=== PATIENT | female | born 1965 | race Caucasian/White ===

== ENCOUNTER 2023-12-02 11:00 | Emergency (ER) | payer BC, SELFPAY ==
[2023-12-02 11:07] VITALS: BP 131/89
[2023-12-02 13:24] VITALS: BP 115/68
[2023-12-02 13:25] LABS: % Basophils 1.1 % (0-2); % Eosinophils 0.1 % (0-6); % Immature Granulocytes 0.4 % (0-0.5); % Lymphocytes 19.2 % (20.5-51.1); % Neutrophils 73.2 % (42.2-75.2); Absolute Basophils 0.1 10^3/uL (0-0.2); Absolute Lymphocytes 1.4 10^3/uL (1.2-3.4); Absolute Monocytes 0.5 10^3/uL (0.1-0.6); Absolute Neutrophils 5.5 10^3/uL (1.4-6.5); Hematocrit 35.3 % (37.0-47.0); Hemoglobin 11.9 g/dL (12.0-16.0); Mean Corp Hgb Conc. 33.7 g/dL (33.0-37.0); Mean Corpuscular Hgb 31.2 pg (27.0-31.0); Mean Corpuscular Volume 92.7 fL (81.0-99.0); Mean Platelet Volume 9.1 fL (7.4-10.4); Nucleated Red Blood Cells % 0 %; Platelet Count 376 10^3/uL (130-400); Red Blood Cell Count 3.81 10^6/uL (4.20-5.40); Red Cell Dist. Width 14.6 % (11.5-14.5); White Blood Cell Count 7.5 10^3/uL (4.8-10.8)
[2023-12-02] MEDS: NSS 1000 IV (13:35)
[2023-12-02 14:00] VITALS: BP 117/70
[2023-12-02 14:19] LABS: Blood Urea Nitrogen 16 mg/dl (7-17); Calcium 9.9 mg/dl (8.4-10.2); Carbon Dioxide 26 mmol/L (22-30); Chloride 106 mmol/L (98-107); Glucose 102 mg/dl (70-99); Sodium 137 mmol/L (135-145); eGFR > 60.00
[2023-12-02 14:29] LABS: Potassium 4.3 mmol/L (3.5-5.1)
--- NOTE | 2023-12-02 14:40 | ED.GENMED ---
History of Present Illness
General
Chief Complaint: Fainting Sensation
Source: patient and family
Exam Limitations: none
Time Seen by Provider: 12/02/23 12:14
Travel History
Have you had any contact with someone who has COVID-19?: No
Do you have any symptoms of coronavirus? Fever > 100 degrees, chills, cough, shortness of breath, sore throat, loss of taste or smell, muscle aches, or headache?: No
History of Present Illness
History of Present Illness:
58-year-old female who presents after she began to feel lightheaded while driving. She states she was well in the morning at breakfast normally and felt okay. She then admits while driving she started to think to herself that she may not feel
quite normal a little lightheaded. As it progressed she felt like her palms were sweaty. She decided to recline back in her car. No chest pain. She called her family. Her family thought she seemed a little bit slow to respond. Patient states
she did not have any difficulty speaking. She slowly began to feel better. Currently feels much better. Recently, she gave blood and went out with friends after. She had a drink and began to feel similarly. She states her friend had a similar
experience that same day after giving blood so she suspected it was related to giving blood. The patient has an appointment for follow-up for that incident that occurred this past weekend, tomorrow. Otherwise healthy. Does not take any daily
medicines. She felt briefly like her heart rate was racing. but She is not sure if it was more result of her being nervous.
Past History
Past History
ED Past Medical History: None
Social History
Tobacco: Non-smoker
Alcohol: Occasional
Phy Exam
Physical Exam
Physical Exam:
CONSTITUTIONAL Patient alert and oriented to person, place and time. Well-appearing. Vital signs reviewed.
HEAD atraumatic, normocephalic.
EYES eyelids normal to inspection, Pupils equally round and reactive to light, Extraocular muscles intact, Conjunctiva normal, Sclera normal.
NECK normal range of motion, Trachea midline, no jugular venous distention.
RESPIRATORY CHEST No respiratory distress noted, Chest expansion equal, Bilateral breath sounds clear.
CARDIOVASCULAR regular rate and rhythm, Heart sounds normal.
ABDOMEN abdomen nontender, Bowel sounds normal. No distention.
BACK normal inspection, no obvious deformities
UPPER EXTREMITY range of motion normal, Motor strength normal, no cyanosis, no edema.
LOWER EXTREMITY range of motion normal, Motor strength normal, no cyanosis, no edema.
NEURO Speech normal, No focal motor deficits, Greg coma scale 15, Memory normal, Cranial Nerves intact to screening exam. Normal [id number].
SKIN skin warm, dry, and normal in color.
PSYCHIATRIC patient oriented to person place and time, Normal affect.
Course
Orders/Labs/Results
Orders:
Orders
12/02/23 11:11
Electrocardiogram (*1) Urgent
Reason for Study: Other
Other Reason for Exam: lightheaded
EKG- Treatment ONCE
12/02/23 13:01
0.9% Sodium Chloride 1000 ml [Nss] 1,000 ml IV BOLUS
12/02/23 13:02
Cardiac Monitoring- Treatment ONCE
12/02/23 13:18
Basic Metabolic Panel Urgent
Complete Blood Count/With Diff Urgent
12/02/23 14:06
Magnesium Urgent
Potassium Urgent
12/02/23 14:33
Add On- LAB Urgent
Comments:: potassium
Tests Added?: potassium
12/02/23 15:08
CT Head W/o Iv Contrast Urgent
Comment:
Reason For Exam: vision loss, resolved
Abnormal Lab Results
12/02/23
13:18
RBC 3.81 L 10^6/uL
(4.20-5.40)
Hgb 11.9 L g/dL
(12.0-16.0)
Hct 35.3 L %
(37.0-47.0)
MCH 31.2 H pg
(27.0-31.0)
RDW 14.6 H %
(11.5-14.5)
Lymphocytes % 19.2 L %
(20.5-51.1)
Glucose 102 H mg/dl
(70-99)
12/02/23 13:18
12/02/23 14:06
Vital Signs
Initial and Last Documented VS:
Initial Vital Signs
Temp Pulse Resp BP Pulse Ox
97.8 F 102 16 131/89 98
12/02/23 11:07 12/02/23 11:07 12/02/23 11:07 12/02/23 11:07 12/02/23 11:07
Last Documented Vital Signs
Temp Pulse Resp BP Pulse Ox
97.8 F 82 14 117/70 100
12/02/23 11:07 12/02/23 14:45 12/02/23 14:45 12/02/23 14:00 12/02/23 14:45
MDM/Problems Addressed
Differential Diagnosis Includes:
Near syncope, arrhythmia, TIA
MDM/Problems Addressed:
Near syncope vs TIA
*Pulse Oximetry
Patient hypoxic: no
*EKG
Interpreted by ED Provider?: Yes
Interpretation: normal
Rate: normal
Rhythm: sinus
QRS Pattern: normal QRS
Ischemia: no ischemia
*Fire Protection Engineer Interpretation
Rate: normal
Interpretation: normal
Rhythm: sinus
*Critical Care Note
Total Time (30-74mins, 75-104mins- exclusive of procedures): Not Applicable
Data Reviewed
Source: patient
Further Testing Considered But Not Given:
Considered troponin but no chest pain no clinical signs for ACS
Patient Management
Escalation/DeEscalation of care consider admission/obs:
Patient appears well. Suspect near syncopal event that was brief in nature and question vagal event as she did have a little bit left-sided pain at that time. Patient now appears well and has remained in normal sinus rhythm. Okay for discharge
ED Attending Note
-
Portions of this chart may have been created with voice recognition software.� Occasional wrong word or��sound alike� substitutions may have occurred due to the inherent limitations of voice recognition software.
Discharge Plan
Departure
Patient with high blood pressure during this ER visit?: No
Discharge Problem:
Near syncope
Instructions: Near Fainting (DC)
Referrals:
Kaur Degroot, DO [Family Provider] -
Activity Restrictions/Additional Instructions:
Please drink plenty of fluids and see your doctor follow-up as planned. Return visit for chest pain, shortness of breath, palpitations, weakness medication or any other concerns.
Interventions
Interventions:
*General Assessment Last Done: 12/02/23 13:31
*ED COVID-19 Vaccine History Last Done: 12/02/23 11:07
ED- Neurological Assessment Last Done: 12/02/23 13:31
[2023-12-02 15:00] VITALS: BP 125/74
--- NOTE | 2023-12-02 15:45 | CON.NEURO ---
Neuro Assessment/Plan
Assessment
IMPRESSIONS/RECOMMENDATIONS:
Abrupt pre-syncope with subsequent headache
Most likely vaso-vagal in nature
Plan
check blood work for potential metabolic causes
Check orthostatic blood pressures
Will continue to follow as needed. Thank you.
Consultation
Order
Date of Consultation: 12/02/23
Requesting Provider: ED Physician
Reason for Consult: Pre-syncope
Subjective/Objective
Subjective Data
Date of Service: December 02, 2023
Right-Handed
1 week ago had complete syncope immediately after blood donation.
Today: At 09:00 [address] patient noted black spot in vision, causing difficulty with vision lasting for 10 minutes.
5 minutes later noted had a sense of ennui.
Patient then had a sense of mild confusion and had difficulty with identification of the local area which subsequently slowly resolved entirely. No involvement of loss of control of bowel or bladder. No tongue biting at the time. No other
associated symptoms and no known modifying factors.
Objective Data
Vital Signs
Temp Pulse Resp BP Pulse Ox
36.6 C 84 15 125/74 99
12/02/23 11:07 12/02/23 15:00 12/02/23 15:00 12/02/23 15:00 12/02/23 15:00
Lab Results
12/02/23 13:18
12/02/23 14:06
Sodium 137 mmol/L (135-145) 12/02/23 13:18
Potassium 4.3 mmol/L (3.5-5.1) 12/02/23 14:06
BUN 16 mg/dl (7-17) 12/02/23 13:18
Glucose 102 mg/dl (70-99) H 12/02/23 13:18
Calcium 9.9 mg/dl (8.4-10.2) 12/02/23 13:18
Patient Allergies
NSAIDS (Non-Steroidal Anti-Inflamma Allergy (Verified 12/02/23 11:11)
Rash
Review of Systems
-
History Source: Patient
All other systems: Reviewed and negative
Constitutional: Other (hand sweatiness)
EENT: Decreased Vision; Negative Swallowing Difficulty
Respiratory: Negative Trouble Breathing
Cardiac: Negative Chest Pain
Abdomen/GI: Negative Incontinence of Stool
Genitourinary: Negative Incontinence
Musculoskeletal: Negative Back Pain or Neck Pain
Neuro: Headache (today at 09:30 mild on left); Negative Dizzy
Physical Exam
-
General: No Apparent Distress and Appears Stated Age
Eyes: OU Absent Papilledema, Round OU, [place] Conjunctivae and No Ptosis
HEENT: Anicteric and Moist Mucous Membranes
Neck: Full Range of Motion
Respiratory: No Dyspnea
Cardiac: No JVD
GI: Non-distended
Skin: Unremarkable
Extremities: No Clubbing, No Cyanosis and No Edema
Psych: Intact Judgement/Insight
Extended Neurological Exam
Mood & Affect: Mood Unremarkable and Affect Unremarkable
Attention Span & Concentration: Awake, Alert, Interactive and No Difficulty with 2 Step Request
Memory: Unremarkable
Tremor: Hand Tremor Absent and Head Tremor Absent
Speech: Quality Unremarkable and Quantity Unremarkable
Cranial Nerve II: Left Eye: Pupillary Reactivity Unremarkable, Pupillary Size Unremarkable and Visual Bañuelos Intact
Cranial Nerve II: Right Eye: Pupillary Reactivity Unremarkable, Pupillary Size Unremarkable and Visual Bañuelos Intact
Cranial Nerves III, IV, : Extraocular Movement: Extraocular Movement Full in all Directions
Cranial Nerve VII: Facial Symmetry: Normal Facial Symmetry
Cranial Nerve VIII: Hearing: Unremarkable Hearing to Normal Conversational Volume
Cranial Nerves IX, X: Palate Movement: Palate Elevation Symmetric
Cranial Nerve XI: Shoulder Shrug: Unremarkable
Cranial Nerve XII: Tongue Protusion: Midline
Muscle Strength, Overall: Full Throughout
Muscle Bulk & Tone: Bulk Unremarkable and Tone Unremarkable
Pronator Drift: No Drift in Upper Extremities and No Drift in Lower Extremities
Deep Tendon Reflexes: Unremarkable Throughout
Touch Sensation: Unremarkable
Coordination: [id number]-[id number] Testing Unremarkable
Babinski Sign: Absent Bilaterally
Data Reviewed
-
CT Head: Pending
Labs: Ordered and Report Reviewed
Reviewed with: Physician and Patient
Old Records: Summarized
Past History
Past History
ED Past Medical History: Psychiatric (RAHUL)
ED Past Surgical History: Other (Bilateral carpal tunnel syndrome)
Social History
Tobacco: Non-smoker
Alcohol: Occasional
[2023-12-02 16:20] LABS: Erythrocyte Sed Rate 2 mm/hour (0-20)
[2023-12-02 16:21] VITALS: BP 127/71
[2023-12-02 17:23] LABS: TSH Reflex To Free T4 2.39 uIU/ml (0.47-4.68)
[2023-12-02 17:24] LABS: Ferritin 8.6 ng/ml (11.1-264.0)
[2023-12-02 17:55] LABS: Folate > 20.0 ng/ml (2.76-20); Vitamin B12 488 pg/ml (239-931)
== END 2023-12-02 16:38 | disposition home or self-care (01) ==
LOC: EMR 11:00
PROVIDERS: CONSULT PHYSICIAN Psychiatry & Neurology Neurology; EMERGENCY PHYSICIAN Emergency Medicine; FAMILY PHYSICIAN Family Medicine
DX: R55 Syncope and collapse (principal); R42 Dizziness and giddiness
CPT/HCPCS: 99285; 96360; 70450; 80048; 82607; 82728; 82746; 83735; 84132; 84443; 85025; 85652; 93005

== ENCOUNTER → 2024-08-18 13:12 | Outpatient (REF) | payer BC, SELFPAY | LOC: WDC 13:12 | PROVIDERS: ATTENDING PHYSICIAN Advanced Practice Midwife; FAMILY PHYSICIAN Family Medicine | DX: N64.4 Mastodynia (principal) | CPT/HCPCS: 76642 ==

== ENCOUNTER → 2024-09-23 13:02 | Outpatient (REF) | payer BC, SELFPAY ==
[2024-09-23 14:27] LABS: % Basophils 1.6 % (0-2); % Eosinophils 1.3 % (0-6); % Immature Granulocytes 0.2 % (0-0.5); % Lymphocytes 30.8 % (20.5-51.1); % Monocytes 10.2 % (1.7-9.3); % Neutrophils 55.9 % (42.2-75.2); Absolute Basophils 0.1 10^3/uL (0-0.2); Absolute Eosinophils 0.1 10^3/uL (0-0.7); Absolute Lymphocytes 1.9 10^3/uL (1.2-3.4); Absolute Monocytes 0.6 10^3/uL (0.1-0.6); Absolute Neutrophils 3.4 10^3/uL (1.4-6.5); Hematocrit 38.2 % (37.0-47.0); Hemoglobin 12.4 g/dL (12.0-16.0); Mean Corp Hgb Conc. 32.5 g/dL (33.0-37.0); Mean Corpuscular Hgb 31.6 pg (27.0-31.0); Mean Corpuscular Volume 97.4 fL (81.0-99.0); Mean Platelet Volume 9.3 fL (7.4-10.4); Nucleated Red Blood Cells % 0 %; Platelet Count 361 10^3/uL (130-400); Red Blood Cell Count 3.92 10^6/uL (4.20-5.40); Red Cell Dist. Width 13.6 % (11.5-14.5); White Blood Cell Count 6.1 10^3/uL (4.8-10.8)
[2024-09-23 14:48] LABS: ALT (SGPT) 19 U/L (0-35); AST (SGOT) 22 U/L (14-36); Albumin 4.7 g/dl (3.5-5.0); Alkaline Phosphatase 49 U/L (38-126); Blood Urea Nitrogen 17 mg/dl (7-17); Carbon Dioxide 27 mmol/L (22-30); Chloride 102 mmol/L (98-107); Glucose 117 mg/dl (70-99); Potassium 4.8 mmol/L (3.5-5.1); Sodium 138 mmol/L (135-145); Total Bilirubin 0.3 mg/dl (0.2-1.3); eGFR > 60.00
== END ==
LOC: RCS 13:02
PROVIDERS: ATTENDING PHYSICIAN Family Medicine; FAMILY PHYSICIAN Obstetrics & Gynecology
DX: Z01.818 Encounter for other preprocedural examination (principal)
CPT/HCPCS: 36415; 80053; 85025; 93005

== ENCOUNTER 2024-09-27 06:21 | Day surgery (SDC) | payer BC, SELFPAY ==
[2024-09-27] VITALS (9 sets, daily range): BP systolic 93–109; BP diastolic 55–70; BMI 23.8
[2024-09-27] MEDS: NORMOSOL-R/PLASMALYTE-A 1000 IV (07:36)
[2024-09-27] MEDS: HEPARIN 5000 UNITS SC (07:37)
[2024-09-27] MEDS: Pyridium 200 MG PO (07:48)
[2024-09-27] MEDS: TYLENOL 1000 MG PO (07:49)
[2024-09-27] MEDS: SUBLIMAZE 25 MCG IV (11:14)
== END 2024-09-27 12:42 | disposition home or self-care (01) ==
LOC: SDS 06:21
PROVIDERS: ATTENDING PHYSICIAN Obstetrics & Gynecology
DX: N81.2 Incomplete uterovaginal prolapse (principal); N95.8 Other specified menopausal and perimenopausal disorders; N39.3 Stress incontinence (female) (male); N80.03 Adenomyosis of the uterus; D25.9 Leiomyoma of uterus, unspecified
CPT/HCPCS: 57425; 58542; 57250; 88305; 86850; 86900; 86901; 88341; 88342; 88365; C1763